=== PATIENT | female | born 1940 | race Caucasian/White ===

== ENCOUNTER → 2024-02-29 16:44 | Outpatient (REF) | payer MEDICARE, OTHER, SELFPAY | LOC: RAD 16:44 | PROVIDERS: ATTENDING PHYSICIAN Family Medicine; FAMILY PHYSICIAN Internal Medicine | DX: J06.9 Acute upper respiratory infection, unspecified (principal) | CPT/HCPCS: 71046 ==

== ENCOUNTER → 2024-08-20 13:27 | Outpatient (REF) | payer MEDICARE, OTHER, SELFPAY | LOC: RCS 13:27 | PROVIDERS: ATTENDING PHYSICIAN Internal Medicine; FAMILY PHYSICIAN Family Medicine | DX: I48.3 Typical atrial flutter (principal); I31.39 Other pericardial effusion (noninflammatory); I45.10 Unspecified right bundle-branch block; I34.0 Nonrheumatic mitral (valve) insufficiency; I34.2 Nonrheumatic mitral (valve) stenosis | CPT/HCPCS: 93306 ==